=== PATIENT | female | born 1945 | race Caucasian/White ===

== ENCOUNTER → 2017-04-09 | Outpatient (CLI) | payer MEDICARE ==
[~2017-04-09] MED LIST: ACTOS15 MG PO; AMLODIPINE BESYL5 MG PO; ANEXSIA 5/325 M1 TA1 PO; ASPIRIN81 M1 PO; COLESTID PO; Cinnamon PO; GLUCOPHAGE500 MG PO; GLUCOTROL PO; GLUCOTROL10 MG PO; HYZAAR 50-1 TAB 50-1 PO; HYZAAR 50-12.51 TA1 PO; JANUVIA PO; JANUVIA100 MG PO; LOSARTAN-HCTZ1 EACH PO; LOW DOSE ASPIRI81 M2 PO; LYRICA75 MG PO; METOPROLOL SUC100 MG PO; MOBIC PO; NORVASC PO; PANTOPRAZOLE SO40 MG PO; PRAVASTATIN SOD40 MG PO; SUPER B COMPLEX1 CAP PO; XENICAL120 MG PO; ZOCOR80 MG PO
--- NOTE | ~2017-04-09 | BD1 ---
[facility] A Service of [facility] RADIOLOGY TEXT RESULTS PATIENT: CARINA FUNES LOCATION: [facility] : 49 UNIT #: [id number] AGE: [address]: Gia Cooper MD SEX: F ORDER DR: [id number] [address] [address] [id number] O MR#: [id number] Acc #: [id number] NAME: CARINA FUNES : 1945 SEX: F STUDY DATE/TIME: 04/09/2017 10:48 UNIT: [facility] ROOM: STUDY DESCRIPTION: BD Dexa Bone Dens 1+ Site Attending Physician: Gia Cooper M.D. Referring Physician: Gia Cooper M.D. Ordering Physician: Gia Cooper M.D. Primary Care Physician: Gia Cooper M.D. MEDICAL IMAGING REPORT This report is preliminary unless electronic signature is present. EXAM Bone density spine hip 04/09/2017 HISTORY Screening. Prior fracture femur right leg. Postmenopausal. FINDINGS Bone density scanning performed upper 4 lumbar vertebral segments the proximal left femur and right forearm. Comparison 01/21/2015. L1-L4: Total bone mineral density 1.442 g/cm2 for T-score of 2.2 standard deviations above the mean for reference population normal young individuals and Z-score 2.7 standard deviations above the mean for age-match population. Compared to December 2014 there has been a 5.1% increase in bone mineral density in this region. In the proximal left femur the total bone mineral density 0.951 g/cm2 for T-score 0.4 standard deviation below mean for a reference population normal young individuals and Z-score 0.2 standard deviations above the mean for age-match population. In the left femoral neck the bone mineral density is 0.882 g/cm2 for T-score 1.1 standard deviations below the mean for reference population normal young individuals and a Z-score 0.2 standard deviations below the mean for age-matched population. Using total bone mineral density as trending value, compared to 01/21/2015 there has been a 0.8% decrease in bone mineral density in this region. In the right radius 33% station the bone mineral density is 0.902 g/cm2 for a T-score 0.2 standard deviations above the mean for a reference population normal young individuals and Z-score 2.0 standard deviations above the mean for age-match population. No prior assessment of right forearm. [facility] A Service of [facility] RADIOLOGY TEXT RESULTS PATIENT: CARINA FUNES LOCATION: [facility] : 49 UNIT #: [id number] AGE: [address]: Gia Cooper MD SEX: F ORDER DR: IMPRESSION 1. Osteopenia in the left femoral neck. Patient is felt to be at increased risk for fracture. Treatment options may be considered. Continued surveillance is recommended. Dictated by... Kamar Robbins M.D. THIS IS AN ELECTRONICALLY VERIFIED REPORT Kamar Robbins M.D. at 04/12/2017 10:33 AM HELENA/john TD: 04/10/2017 01:33 JOB #: [id number] MEDICAL IMAGING REPORT Page 1 of 1
--- NOTE | ~2017-04-09 | MY30 ---
[facility] A Service [facility] RADIOLOGY TEXT RESULTS PATIENT: CARINA FUNES LOCATION: [facility] : 49 UNIT #: [id number] AGE: [address]: Gia Cooper MD SEX: F ORDER DR: [id number] [address] [address] [id number] O MR#: [id number] Acc #: [id number] NAME: CARINA FUNES : 1945 SEX: F STUDY DATE/TIME: 04/09/2017 11:00 UNIT: [facility] ROOM: STUDY DESCRIPTION: MY SCREEN SUSHILA BILAT DIGITAL Attending Physician: Gia Cooper M.D. Referring Physician: Gia Cooper M.D. Ordering Physician: Gia Cooper M.D. Primary Care Physician: Gia Cooper M.D. MEDICAL IMAGING REPORT This report is preliminary unless electronic signature is present. EXAM Bilateral digital screening mammogram with CAD DATE 04/09/2017 HISTORY Breast cyst excisions in [id number]. Family history of breast cancer in a maternal aunt. No personal history of breast cancer or current complaints. COMPARISON Bilateral digital screening mammogram 04/06/2016, 01/21/2015. FINDINGS CC and MLO views were obtained of each breast utilizing digital technique and reviewed with an FDA-approved CAD device. Scattered fibroglandular densities are present bilaterally, and linear markers are placed over the upper, outer quadrant of each breast denoting surgical scars. The parenchymal pattern appears stable. No new or suspicious nodule, architectural distortion, or clustered microcalcification is seen. There is no abnormal skin thickening or nipple retraction. IMPRESSION 1. Routine screening mammogram is recommended in 1 year. Patient's over the age of 40 are entered into a reminder system with target due date for the next mammogram. BIRADS: 1 Negative [facility] A Service of [facility] RADIOLOGY TEXT RESULTS PATIENT: CARINA FUNES LOCATION: [facility] : 49 UNIT #: [id number] AGE: [address]: Gia Cooper MD SEX: F ORDER DR: Dictated by... Beryl Howard M.D. THIS IS AN ELECTRONICALLY VERIFIED REPORT Beryl Howard M.D. at 04/12/2017 8:48 AM GRZEGORZ/[email or web address] TD: 04/09/2017 14:19 JOB #: [id number] MEDICAL IMAGING REPORT Page 1 of 1
== END | disposition home or self-care (01) ==
LOC: SMAM 10:06
DX: Z12.31 Encounter for screening mammogram for malignant neoplasm of breast (principal); M81.0 Age-related osteoporosis without current pathological fracture; M89.9 Disorder of bone, unspecified; M85.852 Other specified disorders of bone density and structure, left thigh; Z78.0 Asymptomatic menopausal state; Z80.3 Family history of malignant neoplasm of breast; Z98.890 Other specified postprocedural states
CPT/HCPCS: 77080; G0202